=== PATIENT | female | born 1960 | race Caucasian/White ===

== ENCOUNTER → 2016-10-06 | Outpatient (CLI) | payer BC ==
--- NOTE | 2016-10-07 14:23 | MM ---
Reason for exam: screening (asymptomatic). Last mammogram was performed 1 year ago. History: Patient is postmenopausal. Family history of breast cancer in mother at age 78, breast cancer in 2 maternal aunts at age 50, and breast cancer in paternal aunt at age 60. Benign US left guided mammotome of the left breast, May 15, 2008. Benign excisional biopsy of the left breast, 1984. Benign excisional biopsy of the left breast, 1978. Took estrogen for 3 years beginning at age 35. Physical Findings: A clinical breast exam by your physician is recommended on an annual basis and results should be correlated with mammographic findings. MG 3D Screening Mammo W/Cad Bilateral CC and MLO view(s) were taken. Prior study comparison: September 27, 2015, bilateral MG 3d screening mammo w/cad. September 17, 2014, bilateral MG screening mammo w CAD. The breast tissue is heterogeneously dense. This may lower the sensitivity of mammography. Finding: There are typically benign round calcifications in both breasts. Previous mammotome biopsy in the left breast. There is no discrete abnormality. ASSESSMENT: Benign, BI-RAD 2 RECOMMENDATION: Routine screening mammogram of both breasts in 1 year.
== END | disposition home or self-care (01) ==
LOC: RADMAMWWP 06:54
PROVIDERS: ATTEND Obstetrics & Gynecology
DX: Z12.31 Encounter for screening mammogram for malignant neoplasm of breast (principal); Z80.3 Family history of malignant neoplasm of breast
CPT/HCPCS: 77063; G0202

== ENCOUNTER → 2017-11-11 | Outpatient (CLI) | payer BC ==
--- NOTE | 2017-11-11 12:27 | MM ---
Reason for exam: screening (asymptomatic). Last mammogram was performed 1 year and 1 month ago. History: Patient is postmenopausal. Family history of breast cancer in mother at age 78, breast cancer in 2 maternal aunts at age 50, and breast cancer in paternal aunt at age 60. Benign US left guided mammotome of the left breast, May 15, 2008. Benign excisional biopsy of the left breast, 1984. Benign excisional biopsy of the left breast, 1978. Took estrogen for 3 years beginning at age 35. Physical Findings: A clinical breast exam by your physician is recommended on an annual basis and results should be correlated with mammographic findings. MG 3D Screening Mammo W/Cad Bilateral CC and MLO view(s) were taken. Prior study comparison: October 06, 2016, bilateral MG 3d screening mammo w/cad. September 27, 2015, bilateral MG 3d screening mammo w/cad. The breast tissue is heterogeneously dense. This may lower the sensitivity of mammography. Previous mammotome biopsy in the left breast. No significant changes when compared with prior studies. ASSESSMENT: Benign, BI-RAD 2 RECOMMENDATION: Routine screening mammogram of both breasts in 1 year.
== END | disposition home or self-care (01) ==
LOC: RADMAMWWP 07:16
PROVIDERS: ATTEND Internal Medicine
DX: Z12.31 Encounter for screening mammogram for malignant neoplasm of breast (principal)
CPT/HCPCS: 77063; 77067

== ENCOUNTER → 2019-01-06 | Outpatient (CLI) | payer BC ==
--- NOTE | 2019-01-10 09:25 | MM ---
Reason for exam: screening (asymptomatic). Last mammogram was performed 1 year and 2 months ago. History: Patient is postmenopausal. Family history of breast cancer in mother at age 78, breast cancer in 2 maternal aunts at age 50, and breast cancer in paternal aunt at age 60. Benign US left guided mammotome of the left breast, May 15, 2008. Benign excisional biopsy of the left breast, 1984. Benign excisional biopsy of the left breast, 1978. Took estrogen for 3 years beginning at age 35. Physical Findings: A clinical breast exam by your physician is recommended on an annual basis and results should be correlated with mammographic findings. MG 3D Screening Mammo W/Cad Bilateral CC and MLO view(s) were taken. Prior study comparison: November 11, 2017, bilateral MG 3d screening mammo w/cad. October 06, 2016, bilateral MG 3d screening mammo w/cad. The breast tissue is heterogeneously dense. This may lower the sensitivity of mammography. Previous mammotome biopsy in the left breast. There is no discrete abnormality. No significant changes when compared with prior studies. ASSESSMENT: Negative, BI-RAD 1 RECOMMENDATION: Routine screening mammogram of both breasts in 1 year.
== END | disposition home or self-care (01) ==
LOC: RADMAMWWP 06:54
PROVIDERS: ATTEND Obstetrics & Gynecology
DX: Z12.31 Encounter for screening mammogram for malignant neoplasm of breast (principal); Z80.3 Family history of malignant neoplasm of breast
CPT/HCPCS: 77063; 77067

== ENCOUNTER → 2019-08-21 | Outpatient (CLI) | payer BC ==
[2019-08-21 16:53] LABS: Estradiol 90.4 pg/mL
== END | disposition home or self-care (01) ==
LOC: LABWHC1 08:05
PROVIDERS: ATTEND Obstetrics & Gynecology
DX: E34.50 Androgen insensitivity syndrome, unspecified (principal); N95.1 Menopausal and female climacteric states; N95.2 Postmenopausal atrophic vaginitis; E55.9 Vitamin D deficiency, unspecified
CPT/HCPCS: 36415; 82306; 82670; 83001; 84403

== ENCOUNTER → 2020-03-27 | Outpatient (CLI) | payer BC ==
--- NOTE | 2020-03-27 13:25 | MM ---
Reason for exam: screening (asymptomatic). Last mammogram was performed 1 year and 3 months ago. History: Patient is postmenopausal. Family history of breast cancer in mother at age 78, breast cancer in 2 maternal aunts at age 50, and breast cancer in paternal aunt at age 60. Benign US left guided mammotome of the left breast, May 15, 2008. Benign excisional biopsy of the left breast, 1984. Benign excisional biopsy of the left breast, 1978. Took estrogen for 3 years beginning at age 35. Took progesterone for 2 years. Physical Findings: A clinical breast exam by your physician is recommended on an annual basis and results should be correlated with mammographic findings. MG 3D Screening Mammo W/Cad Bilateral CC and MLO view(s) were taken. Prior study comparison: January 06, 2019, bilateral MG 3d screening mammo w/cad. November 11, 2017, bilateral MG 3d screening mammo w/cad. The breast tissue is heterogeneously dense. This may lower the sensitivity of mammography. Previous mammotome biopsy in the left breast. No significant changes when compared with prior studies. ASSESSMENT: Benign, BI-RAD 2 RECOMMENDATION: Routine screening mammogram of both breasts in 1 year.
== END | disposition home or self-care (01) ==
LOC: RADMAMWWP 07:19
PROVIDERS: ATTEND Obstetrics & Gynecology
DX: Z12.31 Encounter for screening mammogram for malignant neoplasm of breast (principal); Z80.3 Family history of malignant neoplasm of breast
CPT/HCPCS: 77063; 77067

== ENCOUNTER → 2021-03-31 | Outpatient (CLI) | payer OTHER ==
--- NOTE | 2021-04-01 12:27 | MM ---
Reason for exam: screening (asymptomatic). Last mammogram was performed 1 year ago. History: Patient is postmenopausal. Family history of breast cancer in mother at age 78, breast cancer in 2 maternal aunts at age 50, and breast cancer in paternal aunt at age 60. Benign US left guided mammotome of the left breast, May 15, 2008. Benign excisional biopsy of the left breast, 1984. Benign excisional biopsy of the left breast, 1978. Taking estrogen for 3 years beginning at age 35. Taking progesterone for 2 years. Physical Findings: A clinical breast exam by your physician is recommended on an annual basis and results should be correlated with mammographic findings. MG 3D Screening Mammo W/Cad Bilateral CC and MLO view(s) were taken. Prior study comparison: March 27, 2020, bilateral MG 3d screening mammo w/cad. January 06, 2019, bilateral MG 3d screening mammo w/cad. The breast tissue is heterogeneously dense. This may lower the sensitivity of mammography. There is a possible mass in the lateral right breast at middle depth and diagnostic mammogram is recommended. Left biopsy clip. ASSESSMENT: Incomplete: need additional imaging evaluation, BI-RAD 0 RECOMMENDATION: Special view mammogram of the right breast. If lesion persists on supplemental views, image directed ultrasound is recommended. [facility] will attempt to contact patient to return for supplemental views and ultrasound if indicated.
== END | disposition home or self-care (01) ==
LOC: RADMAMWWP 07:21
PROVIDERS: ATTEND Obstetrics & Gynecology
DX: Z12.31 Encounter for screening mammogram for malignant neoplasm of breast (principal); Z78.0 Asymptomatic menopausal state; Z80.3 Family history of malignant neoplasm of breast
CPT/HCPCS: 77063; 77067

== ENCOUNTER → 2021-04-02 | Outpatient (CLI) | payer OTHER ==
--- NOTE | 2021-04-02 10:52 | USB ---
EXAMINATION TYPE: US breast workup limited RT DATE OF EXAM: 04/02/2021 COMPARISON: Mammogram same date CLINICAL HISTORY: R92.8 abnormal mammogram. Findings: The right breast was scanned with ultrasound from 8-12 o'clock and in the retroareolar region and axi llary tail. In the right breast at 8:00, there is a 1.2 x 0.6 x 1.1 cm irregular hypoechoic mass which correspond s well in size, location and morphology to the asymmetry seen on mammogram and is suspicious. Ultraso und-guided biopsy is recommended. In the right breast at 11:00, there is a 0.8 x 0.5 x 0.6 cm irregular hypoechoic mass and ultrasound- guided biopsy is recommended. An incidental cyst is noted in the right breast at 11:00 measuring up to 0.4 cm. IMPRESSION: Ultrasound-guided biopsy is recommended for the right breast mass at 8:00 and the right breast mass a t 11:00. BI-RADS 4, suspicious.
--- NOTE | 2021-04-02 11:23 | MM ---
Reason for exam: additional evaluation requested from abnormal screening. Last mammogram was performed less than 1 month ago. History: Patient is postmenopausal. Family history of breast cancer in mother at age 78, breast cancer in 2 maternal aunts at age 50, and breast cancer in paternal aunt at age 60. Benign US left guided mammotome of the left breast, May 15, 2008. Benign excisional biopsy of the left breast, 1984. Benign excisional biopsy of the left breast, 1978. Taking estrogen for 3 years beginning at age 35. Took progesterone for 2 years. Physical Findings: Nurse did not find any significant physical abnormalities on exam. MG 3D Work Up W/Cad RT Spot compression CC, CCRL, CCRM, and LM view(s) were taken of the right breast. Prior study comparison: March 31, 2021, bilateral MG 3d screening mammo w/cad. March 27, 2020, bilateral MG 3d screening mammo w/cad. The breast tissue is heterogeneously dense. This may lower the sensitivity of mammography. There is a persistent asymmetry approximately 1.3cm in size at approximately 8cm from nipple on CC view and lateral right ultrasound recommended. These results were verbally communicated with the patient and result sheet given to the patient on 04/02/21. ASSESSMENT: Incomplete: need additional imaging evaluation, BI-RAD 0 RECOMMENDATION: Ultrasound of the right breast.
== END | disposition home or self-care (01) ==
LOC: RADMAMWWP 08:12
PROVIDERS: ATTEND Obstetrics & Gynecology
DX: N63.11 Unspecified lump in the right breast, upper outer quadrant (principal); N60.01 Solitary cyst of right breast
CPT/HCPCS: 77061; 77065

== ENCOUNTER → 2021-04-21 | Day surgery (SDC) | payer OTHER ==
[2021-04-21 12:11] VITALS: RESP 16; TEMP 98.4
[2021-04-21 14:02] VITALS: BP 145/80; PULSE 55
--- NOTE | 2021-04-21 18:42 | USB ---
EXAMINATION TYPE: US biopsy breast VAD RT, MG post biopsy diagnostic mammo RT wo CAD DATE OF EXAM: 04/21/2021 CLINICAL HISTORY: 61-year-old female R92.8 abnormal mammogram. TECHNIQUE: Ultrasound guided core biopsy of the left breast. COMPARISON: 04/02/2021 and 03/31/2021 FINDINGS: The procedure of ultrasound guided core biopsy was explained to the patient. Benefits, alternatives, and risks were discussed. An informed consent was then obtained. The 11:00 zone BC site that previously appeared hypoechoic and irregular now shows the interval development of multiple cysts measuring up to 9 x 9 mm, suspected fibrocystic change in the reassessed in 6 months. The 8:00, 9 mm mass with small cystic component is identified and targeted for biopsy. The patient was placed in supine positioning for imaging and for the procedure. The overlying skin was prepped and draped in usual sterile fashion. Lidocaine was used as anesthetic into the skin and subcutaneous tissue up to area of concern in the 8:00 right breast. Under ultrasound guidance, a 13-gauge vacuum-assisted mammotome Elite biopsy gun was used to obtain 3 core samples. Following this, a coil clip was left in the lesion. The patient tolerated the procedure well without any immediate complication. The patient was kept in the radiology department for short stay after the procedure and then discharged home in stable condition. Postbiopsy mammogram shows coil clip at the 8:00 position in an area of mammographic focal asymmetry. IMPRESSION: Successful, uncomplicated ultrasound guided core biopsy of solid 9 mm nodule within the 8:00 right breast; full pathology results to follow. RECOMMENDATIONS: 1. Await pathology results for the 8:00 right breast biopsy. 2. If benign results, six-month follow-up right breast mammogram and 11:00 targeted right breast ultrasound will be recommended. Pathology Results: High Risk RIGHT BREAST, 8:00, ULTRASOUND GUIDED CORE BIOPSY: Benign stromal myxoid neoplasm, favor myxoma. Background fibrocystic changes. See note. Recommendation Surgical consult of the right breast. ENZO
== END ==
LOC: RADUSWWP 11:52
PROVIDERS: ATTEND Student in an Organized Health Care Education/Training Program
DX: N60.11 Diffuse cystic mastopathy of right breast (principal); R92.8 Other abnormal and inconclusive findings on diagnostic imaging of breast
CPT/HCPCS: 88305; 77065; 19083; A4648; J2001

== ENCOUNTER → 2021-05-01 | Day surgery (SDC) | payer OTHER ==
[2021-04-29 10:21] VITALS: BMI 25.8
[~2021-05-01] MED LIST: ALPRAZolam 0.25 MG TAB ONE; ALPRAZolam 0.25 MG TAB PO ONE; BUPIVACAINE (PF) 0.25% 30 ML VIAL SQ ONE; DEXAMETHASONE SOD PHOSPHATE 4 MG/ML 1 ML VIAL IV ONE; GLYCOPYRROLATE 0.2 MG/ML 2 ML VIAL ONE; HEPARIN SODIUM,PORCINE/PF 5,000 UNIT/0.5 ML SYRINGE SQ PRN; HYDROmorphone 0.5 MG/0.5 ML SYRINGE IVP PRN; LACTATED RINGERS 1,000 ML IV SCH; LIDOCAINE 1% (10MG/ML) FOR IV START INTRADERMA ONE; LIDOCAINE 1% INJ 10MG/ML (20 ML MDV) ONE; LIDOCAINE 1% INJ 10MG/ML (20 ML MDV) SQ ONE; MIDAZOLAM 2 MG/2 ML VIAL ONE; ONDANSETRON 4 MG/2 ML VIAL IVP ONE; PHENYLEPHRINE-0.9% NACL SYG 1,000 MCG/10 ML SYRINGE ONE; PROPOFOL 10 MG/ML 20 ML VIAL IV ONE; Pre Op ABX Message 1 EACH MISC MISCELLANE ONE; SODIUM CHLORIDE 0.9% 100 ML with ceFAZolin 2,000 MG IV ONE; SUCCINYLCHOLINE CHLORIDE 100 MG/5 ML SYR IV ONE; fentaNYL (PF) 50 MCG/ML 2 ML AMP ONE
[2021-05-01 11:25] VITALS: RESP 16
[2021-05-01 12:21] VITALS: TEMP 98.2
--- NOTE | 2021-05-01 13:45 | P.OP ---
Date of Procedure: 05/01/21 Preoperative Diagnosis: Myxoma the right breast Postoperative Diagnosis: Same Procedure(s) Performed: It localized excisional right breast lesion Anesthesia: NATALIA Surgeon: Miguel Angel Dee Estimated Blood Loss (ml): 10 Condition: stable Disposition: PACU Description of Procedure: Patient is brought operative suite remained in supine position when general endotracheal anesthesia per Department of anesthesia prepped and draped usual sterile fashion timeout performed correct patient correct procedure correct site was verified she previously had needle localization of the lesion in the right breast which pathology confirmed on biopsy was consistent with myxoma. A curvilinear incision was made just below the wire approximately 3 cm long and circumdentally flaps were created the lesion was excised and sent entirety with the wire and the clip sent to mammography to confirm. Mammogram at 3 confirmed that the clip was in the middle of the specimen. Hemostasis was achieved with Bovie left cautery the wound was irrigated and closed with 30 subdermal Vicryl followed by 4-0 running subcuticular Monocryl sterile dressing was applied patient tolerated procedure well no apparent complications Plan - Discharge Summary Discharge Rx Participant: Yes New Discharge Prescriptions: No Action FLUoxetine HCL [PROzac] 20 mg PO QAM Dicyclomine [Bentyl] 10 mg PO TID PRN PRN Reason: IBS ALPRAZolam [Xanax] 0.25 mg PO BID PRN PRN Reason: Anxiety Multivitamins, Thera [Multivitamin (formulary)] 1 tab PO DAILY Discharge Medication List ALPRAZolam [Xanax] 0.25 mg PO BID PRN 04/10/21 [History] Dicyclomine [Bentyl] 10 mg PO TID PRN 04/10/21 [History] FLUoxetine HCL [PROzac] 20 mg PO QAM 04/10/21 [History] Multivitamins, Thera [Multivitamin (formulary)] 1 tab PO DAILY 04/29/21 [History]
[2021-05-01 14:55] VITALS: BP 131/86; PULSE 98
--- NOTE | 2021-05-01 15:04 | MM ---
EXAMINATION TYPE: MG pre op needle loc RT, MG surgical specimen RT, US discontinued breast loc RT DATE OF EXAM: 05/01/2021 COMPARISON: 04/21/2021, 04/02/2021, 03/31/2021 CLINICAL HISTORY: 61-year-old female referred for needle localization and excision of the 8:00 right breast myxoma. TECHNIQUE: Needle localization with wire placement and surgical excision of area of concern in the 8: 00 right breast. FINDINGS: As the patient was going to surgery, we reviewed the prior imaging and noted the 11:00 area which blas ginally appeared suspicious on the 04/02/2021 exam. There is discussion as to performing an ultrasound-guided biopsy for a definitive diagnosis at this 1 1:00 area prior to surgery. Decision was made to perform the localization with excision at both 8:00 intended site and small 11:00 hypoechoic site. However, during real-time scanning and preparation for the needle localization at 11:00, the area has the appearance of shadowing breast tissue with some adjacent cystic change. We will perform precauti onary 6 month follow-up ultrasound of the right breast. The procedure of needle localization with wire placement and than surgical excision was explained to the patient for the 8:00 site. Benefits, alternatives, and risks were discussed. An informed consen t was then obtained. The shortest pathway for procedure was chosen. Shortest pathway was a lateral approach. The overlyin g skin was prepped and draped in usual sterile fashion. Lidocaine was used as anesthetic into the sk in and subcutaneous tissue up to the level of area of concern. A 5 cm needle was used. It was place d via a lateral approach under mammographic guidance. Subsequent 90 degrees mammogram show the needl e to be in satisfactory position relative to the targeted area. At this point, wire was placed and t he needle was withdrawn. The wire was fixed to patient's skin. Images were marked for surgeon. The patient tolerated the procedure well without any immediate complication. The patient was kept in the radiology department for short stay after the procedure and then taken to surgery for surgical e xcision. Targeted clip and wire are identified in specimen mammogram. The patient was kept in hospital for sh ort stay after the procedure and then discharged home in stable condition. IMPRESSION: 1. Successful, uncomplicated needle localization with wire placement and surgical excision at the sit e of biopsy proven myxoma in the 8:00 right breast. Full pathology results to follow. 2. Ultrasound-guided needle localization at the right 11:00 position was canceled. During real-time s da, the area had the appearance of shadowing breast tissue with some adjacent cystic change. Pre cautionary 6 month follow-up ultrasound can be performed here.
== END | disposition home or self-care (01) ==
LOC: OR 09:39
PROVIDERS: ATTEND Student in an Organized Health Care Education/Training Program
DX: D24.1 Benign neoplasm of right breast (principal); K58.9 Irritable bowel syndrome, unspecified; R92.0 Mammographic microcalcification found on diagnostic imaging of breast; F41.8 Other specified anxiety disorders
CPT/HCPCS: 19120; 19281; 88307; 76098; 76641; J2250; J1100; J2405; J0690; J2001; J3010; J2370; J0330; J2704; J1644

== ENCOUNTER → 2021-12-04 | Outpatient (CLI) | payer OTHER ==
--- NOTE | 2021-12-09 11:41 | MM ---
Reason for exam: follow-up at short interval from prior study. Last mammogram was performed 7 months ago. History: Patient is postmenopausal and has history of high-risk lesion on a previous biopsy at age 61. Family history of breast cancer in mother at age 78, breast cancer in 2 maternal aunts at age 50, and breast cancer in paternal aunt at age 60. Benign MG pre op needle loc RT of the right breast, May 01, 2021. Lumpectomy of the right breast, May 01, 2021. US discontinued breast loc RT of the right breast, May 01, 2021. High risk US biopsy breast VAD RT of the right breast, April 21, 2021. Benign US left guided mammotome of the left breast, May 15, 2008. Benign excisional biopsy of the left breast, 1984. Benign excisional biopsy of the left breast, 1978. Taking estrogen for 3 years beginning at age 35. Took progesterone for 2 years. Physical Findings: A clinical breast exam by your physician is recommended on an annual basis and results should be correlated with mammographic findings. MG 3D Diag Mammo W/Cad RT CC and MLO view(s) were taken of the right breast. Prior study comparison: April 21, 2021, right breast MG diagnostic mammo RT wo CAD. April 02, 2021, right breast MG 3d work up w/cad RT. Focal asymmetry upper outer right breast 11 cm from nipple measuring 2.2cm. ASSESSMENT: Incomplete: need additional imaging evaluation, BI-RAD 0 RECOMMENDATION: Ultrasound of the right breast.
--- NOTE | 2021-12-09 11:42 | USB ---
Reason for exam: additional evaluation requested from abnormal screening. History: Patient is postmenopausal and has history of high-risk lesion on a previous biopsy at age 61. Family history of breast cancer in mother at age 78, breast cancer in 2 maternal aunts at age 50, and breast cancer in paternal aunt at age 60. Benign MG pre op needle loc RT of the right breast, May 01, 2021. Lumpectomy of the right breast, May 01, 2021. US discontinued breast loc RT of the right breast, May 01, 2021. High risk US biopsy breast VAD RT of the right breast, April 21, 2021. Benign US left guided mammotome of the left breast, May 15, 2008. Benign excisional biopsy of the left breast, 1984. Benign excisional biopsy of the left breast, 1978. Taking estrogen for 3 years beginning at age 35. Took progesterone for 2 years. US Breast Limited RT Right limited breast ultrasound including focal area of concern, retroareolar and axilla demonstrates a 1.1 x 0.7 x 0.5cm cystic cluster at 10 o'clock. ASSESSMENT: Probably benign, BI-RAD 3 RECOMMENDATION: Follow-up diagnostic mammogram of both breasts in 6 months. Ultrasound of the right breast in 6 months.
== END | disposition home or self-care (01) ==
LOC: RADMAMWWP 14:08
PROVIDERS: ATTEND Obstetrics & Gynecology
DX: N64.89 Other specified disorders of breast (principal); N60.11 Diffuse cystic mastopathy of right breast; Z78.0 Asymptomatic menopausal state; Z80.3 Family history of malignant neoplasm of breast
CPT/HCPCS: 77061; 77065

== ENCOUNTER → 2022-06-17 | Outpatient (CLI) | payer OTHER ==
--- NOTE | 2022-06-17 08:06 | MM ---
Reason for Exam: Follow-up at short interval from prior study. Last mammogram was performed 1 year(s) and 2 month(s) ago. Patient History: Menarche at age 12. First Full-Term at age 14. Hysterectomy at age 31. Postmenopausal. Currently using Estrogen, beginning at age 35 for 3 years. Patient used Progesterone for 2 years. 1984, Benign Excisional Biopsy on the left side. 1978, Benign Excisional Biopsy on the left side. 05/01/2021, Lumpectomy on the Right side. 05/01/2021, Benign Core Biopsy on the right side. 04/21/2021, High risk Core Biopsy on the right side. 05/15/2008, Benign Core Biopsy on the left side. 05/01/2021, US discontinued breast loc RT on the right side. Paternal aunt had breast cancer, age 60. Maternal aunt had breast cancer, age 50. Maternal aunt had breast cancer, age 50. Mother had breast cancer, age 78. Risk Values: Lynette 5 year model risk: 4.1%. NCI Lifetime model risk: 15.7%. Prior Study Comparison: 10/06/2016 Bilateral Screening Mammogram, LOCATED [facility]IN [facility]. 11/11/2017 Bilateral Screening Mammogram, [facility]. 01/06/2019 Bilateral Screening Mammogram, [facility]. 03/27/2020 Bilateral Screening Mammogram, [facility] 03/31/2021 Bilateral Screening Mammogram, [facility]. 04/02/2021 Right Diagnostic Mammogram, [facility]. 04/02/2021 Right Diagnostic Ultrasound, [facility]. 04/21/2021 Right Diagnostic Mammogram, [facility]. 12/04/2021 Right Diagnostic Mammogram, [facility]. 12/04/2021 Right Diagnostic Ultrasound, [facility]. Tissue Density: The breast tissue is heterogeneously dense. This may lower the sensitivity of mammography. Findings: Analyzed By CAD. Persistent distortion in the upper outer right breast with stable near 2.0 cm oval circumscribed mass. Mammotome biopsy clip left breast redemonstrated. No definitive new group of microcalcification or suspicious mass in either breast. Overall Assessment: Benign, BI-RAD 2 Management: Screening Mammogram of both breasts in 1 year. A clinical breast exam by your physician is recommended on an annual basis and results should be correlated with mammographic findings. This exam should not preclude additional follow-up of suspicious palpable abnormalities. Results were given to the patient verbally at the time of exam. Electronically signed and approved by: Akbar Lundberg M.D.
--- NOTE | 2022-06-17 12:37 | USB ---
Reason for Exam: Follow-up at short interval from prior study. Patient History: Menarche at age 12. First Full-Term at age 14. Hysterectomy at age 31. Postmenopausal. Currently using Estrogen, beginning at age 35 for 3 years. Patient used Progesterone for 2 years. 1984, Benign Excisional Biopsy on the left side. 1978, Benign Excisional Biopsy on the left side. 05/01/2021, Lumpectomy on the Right side. 05/01/2021, Benign Core Biopsy on the right side. 04/21/2021, High risk Core Biopsy on the right side. 05/15/2008, Benign Core Biopsy on the left side. 05/01/2021, US discontinued breast loc RT on the right side. Paternal aunt had breast cancer, age 60. Maternal aunt had breast cancer, age 50. Maternal aunt had breast cancer, age 50. Mother had breast cancer, age 78. Risk Values: Lynette 5 year model risk: 4.1%. NCI Lifetime model risk: 15.7%. Technique: Method: Targeted. Prior Study Comparison: 04/02/2021 Right Diagnostic Mammogram, [facility]. 04/21/2021 Right Diagnostic Mammogram, [facility]. 12/04/2021 Right Diagnostic Mammogram, [facility]. Findings: The upper outer quadrant of the right breast, the axilla of the right breast and the retroareolar of the right breast were scanned. Targeted ultrasound today shows no solid or cystic masses upper outer quadrant.. Overall Assessment: Probably benign, BI-RAD 3 Management: Diagnostic Breast Ultrasound of the right breast in 6 months. Mammogram findings appear stable. Cannot explain why thin-walled cyst with septation 10:00 position on prior ultrasound is not seen on today's study given mammogram appearance. Precautionary repeat diagnostic right breast ultrasound in 6 months time is advised. Electronically signed and approved by: Akbar Lundberg M.D.
== END | disposition home or self-care (01) ==
LOC: RADMAMWWP 06:51
PROVIDERS: ATTEND Student in an Organized Health Care Education/Training Program
DX: R92.8 Other abnormal and inconclusive findings on diagnostic imaging of breast (principal); Z78.0 Asymptomatic menopausal state; Z80.3 Family history of malignant neoplasm of breast
CPT/HCPCS: 77062; 77066

== ENCOUNTER → 2022-12-23 | Outpatient (CLI) | payer BC ==
--- NOTE | 2022-12-23 07:34 | USB ---
Reason for Exam: Follow-up at short interval from prior study. Patient History: Menarche at age 12. First Full-Term at age 14. Hysterectomy at age 31. Postmenopausal. Currently using Estrogen, beginning at age 35 for 3 years. Patient used Progesterone for 2 years. 1984, Benign Excisional Biopsy on the left side. 1978, Benign Excisional Biopsy on the left side. 05/01/2021, Lumpectomy on the Right side. 05/01/2021, Benign Core Biopsy on the right side. 04/21/2021, High risk Core Biopsy on the right side. 05/15/2008, Benign Core Biopsy on the left side. 05/01/2021, US discontinued breast loc RT on the right side. Paternal aunt had breast cancer, age 60. Maternal aunt had breast cancer, age 50. Maternal aunt had breast cancer, age 50. Mother had breast cancer, age 78. Risk Values: Lynette 5 year model risk: 4.1%. NCI Lifetime model risk: 15.7%. Prior Study Comparison: 04/21/2021 Right Diagnostic Mammogram, [facility]. 12/04/2021 Right Diagnostic Mammogram, [facility]. 06/17/2022 Bilateral MG 3D diag mammo w/cad BRIANA, [facility]. Findings: The upper outer quadrant of the right breast, the axilla of the right breast and the retroareolar of the right breast were scanned. Today's ultrasound shows 4 x 3 x 4 mm round circumscribed anechoic lesion at 9:00 position 5 cm distance from nipple with increased through transmission and some internal echoes, possible thin-walled cyst with debris. Remainder exam shows no worrisome solid or cystic mass or fluid collection. Management: Diagnostic Mammogram of both breasts in 6 months. Diagnostic Breast Ultrasound of the right breast in 6 months. Back on schedule for mammogram. Short-term repeat ultrasound right breast due to new but suspected benign lesion. Results were given to the patient verbally at the time of exam. Electronically signed and approved by: Akbar Lundberg M.D.
== END | disposition home or self-care (01) ==
LOC: RADUSWWP 06:56
PROVIDERS: ATTEND Obstetrics & Gynecology
DX: R92.8 Other abnormal and inconclusive findings on diagnostic imaging of breast (principal); Z78.0 Asymptomatic menopausal state; Z80.3 Family history of malignant neoplasm of breast

== ENCOUNTER → 2023-06-30 | Outpatient (CLI) | payer MEDICARE ==
--- NOTE | 2023-06-30 13:10 | USB ---
Reason for Exam: Follow-up at short interval from prior study. Patient History: Menarche at age 12. First Full-Term at age 14. Hysterectomy at age 31. Postmenopausal. Estrogen, starting at age 35 for 3 years. Patient used Progesterone for 2 years. 1984, Benign Excisional Biopsy on the left side. 1978, Benign Excisional Biopsy on the left side. 05/01/2021, Lumpectomy on the Right side. 05/01/2021, Benign Core Biopsy on the right side. 04/21/2021, High risk Core Biopsy on the right side. 05/15/2008, Benign Core Biopsy on the left side. 05/01/2021, US discontinued breast loc RT on the right side. Paternal aunt had breast cancer, age 60. Maternal aunt had breast cancer, age 50. Maternal aunt had breast cancer, age 50. Mother had breast cancer, age 78. Risk Values: Lynette 5 year model risk: 4.2%. NCI Lifetime model risk: 15.2%. Technique: Method: Targeted. Prior Study Comparison: 04/21/2021 Right Diagnostic Mammogram, [facility]. 12/04/2021 Right Diagnostic Mammogram, [facility]. 06/17/2022 Bilateral MG 3D diag mammo w/cad BRIANA, [facility]. Findings: The upper outer quadrant of the right breast, the axilla of the right breast and the retroareolar of the right breast were scanned. Small hypoechoic lesion REFLECT a tiny cyst is again noted and measures 3 x 2 x 3 mm. No solid masses are detected.. Overall Assessment: Benign, BI-RAD 2 Management: Screening Mammogram of both breasts in 1 year. A clinical breast exam by your physician is recommended on an annual basis and results should be correlated with mammographic findings. This exam should not preclude additional follow-up of suspicious palpable abnormalities. Results were given to the patient verbally at the time of exam. Electronically signed and approved by: Rony Lane M.D. Radiologis
== END | disposition home or self-care (01) ==
LOC: RADMAMWWP 10:43
PROVIDERS: ATTEND Internal Medicine
DX: R92.8 Other abnormal and inconclusive findings on diagnostic imaging of breast (principal); N64.89 Other specified disorders of breast; Z78.0 Asymptomatic menopausal state; Z80.3 Family history of malignant neoplasm of breast
CPT/HCPCS: 77066; 76642; G0279; 77062

== ENCOUNTER → 2024-07-10 | Outpatient (CLI) | payer MEDICARE ==
--- NOTE | 2024-07-10 16:19 | BD ---
EXAMINATION TYPE: Axial Bone Density DATE OF EXAM: 07/10/2024 CLINICAL HISTORY: 64 years old Female. ICD-10 CODE: N95.1 MENOPAUSAL AND FEMALE CLI Height: 64 Weight: 170.0 FRAX RISK QUESTIONS: Alcohol (3 or more units per day): no Family History (Parent hip fracture): no Glucocorticoids (More than 3mos): no (Ex: prednisone, prednisolone, methylprednisolone, dexamethasone, and hydrocortisone). History of Fracture in Adulthood: no Secondary Osteoporosis: 1. Type 1 Diabetes: no 2. Hyperthyroidism: no 3. Menopause before 45: no 4. Malnutrition: no 5. Chronic liver disease: no Rheumatoid Arthritis: no Current Tobacco Use: no RISK FACTORS HISTORY OF: Hip Fracture (Right/Left): no Spine Fracture: no History of Wrist Fracture: no Surgery to Spine/Hip(right/left)/Wrist (right/left): no MEDICATIONS: Thyroid Medications: no Osteoporosis Medications: no EXAM MEASUREMENTS: Bone mineral densitometry was performed using the [employer] System. Bone mineral density as measured about the Lumbar spine is: ----- L1-L4(G/cm2): 1.232 T Score Values are as follows: ----- L1: -1.3 ----- L2: -1.3 ----- L3: 1.4 ----- L4: 2.4 ----- L1-L4: 0.4 Z Score Values are as follows: ----- L1: -0.1 ----- L2: -0.1 ----- L3: 2.6 ----- L4: 3.6 ----- L1-L4: 1.6 Baseline Study Bone mineral density about the R hip (g/cm2): 0.973 Bone mineral density about the L hip (g/cm2): 1.004 T Score values are as follows: -----R Neck: -0.7 -----L Neck: -0.58 -----R Total: -0.3 -----L Total: 0.0 Z Score values are as follows: -----R Neck: 0.6 -----L Neck: 0.8 -----R Total: 0.7 -----L Total: 0.9 Baseline Study FRAX%s: The graph provided illustrates a 7.6% chance for a major osteoporotic fx and a 0.5% chance fo r the hips probability for fx in 10 years time. IMPRESSION: Normal (Values between +1 and -1 indicate normal bone mass). Consider repeating this study in 5 year s or sooner if there is some new clinical indication. NOTE: T-SCORE=SD OF THE YOUNG ADULT MEAN. [facility], , 07/10/2024 4:16 PM
--- NOTE | 2024-07-11 18:59 | MM ---
Reason for Exam: Screening (asymptomatic). Last screening mammogram was performed 12 month(s) ago. Patient History: Menarche at age 12. First Full-Term at age 14. Hysterectomy at age 31. Postmenopausal. Estrogen, starting at age 35 for 3 years. Patient used Progesterone for 2 years. 1984, Benign Excisional Biopsy on the left side. 1978, Benign Excisional Biopsy on the left side. 05/01/2021, Lumpectomy on the Right side. 05/01/2021, Benign Core Biopsy on the right side. 04/21/2021, High risk Core Biopsy on the right side. 05/15/2008, Benign Core Biopsy on the left side. 05/01/2021, US discontinued breast loc RT on the right side. Paternal aunt had breast cancer, age 60. Maternal aunt had breast cancer, age 50. Maternal aunt had breast cancer, age 50. Mother had breast cancer, age 78. Risk Values: Lynette 5 year model risk: 4.3%. NCI Lifetime model risk: 14.7%. Prior Study Comparison: 12/04/2021 Right Diagnostic Mammogram, [facility]. 06/17/2022 Bilateral MG 3D diag mammo w/cad BRIANA, [facility]. 06/30/2023 Bilateral MG 3D diag mammo w/cad BRIANA, [facility]. Tissue Density: The breasts are heterogeneously dense, which may obscure small masses. Findings: Analyzed By CAD. Excisional scar redemonstrated upper outer right breast. Microclip left breast from prior biopsy. Bilateral areas of asymmetric density remain unchanged. There is no suspicious group of microcalcifications or new suspicious mass in either breast. Overall Assessment: Benign, BI-RAD 2 Management: Screening Mammogram of both breasts in 1 year. See note below in regards to the patient's increased 5 year Lynette score. Patient should continue monthly self-breast exams. A clinical breast exam by your physician is recommended on an annual basis. This exam should not preclude additional follow-up of suspicious palpable abnormalities. Note on Lynette scores and lifetime risk: 1. A Lynette score greater than 3% is considered moderate risk. If this is the case, consider specialist referral to assess eligibility for a risk reducing agent. 2. If overall lifetime risk for the development of breast cancer is 20% or higher, the patient may qualify for future screening with alternating mammogram and breast MRI. [facility], , 07/11/2024 6:56 PM. Electronically signed and approved by: Cameron Hutchins M.D. Radiologist
== END | disposition home or self-care (01) ==
LOC: RADMAMWWP 07:02
PROVIDERS: ATTEND Internal Medicine
DX: Z12.31 Encounter for screening mammogram for malignant neoplasm of breast (principal); M85.88 Other specified disorders of bone density and structure, other site; Z78.0 Asymptomatic menopausal state; Z80.3 Family history of malignant neoplasm of breast; R92.333 Mammographic heterogeneous density, bilateral breasts
CPT/HCPCS: 77063; 77067; 77080